=== PATIENT | female | born 1985 | race Asian ===

== ENCOUNTER 2016-09-24 10:11 | Inpatient (IN) | payer OTHER ==
[~2016-09-24] VITALS: Ht 170.2 cm; Wt 84.0 kg
[~2016-09-24 10:11] MED LIST: ATROPINE SYRINGE 0.1 MG/ML, 10ML ONE; CEFAZOLIN 1,000 MG ONE; ONDANSETRON 2MG/ML, 2ML ONE
[2016-09-24] MEDS ORDERED: METF500T4 PO (10:26)
[2016-09-24] MEDS: OXYTOCIN 30U/ 0.9% NaCL 500ML 500 ML IV SCH ×3 (10:26→20:26)
[2016-09-24] MEDS ORDERED: vegan iron PO (10:26)
[2016-09-24] MEDS ORDERED: PREN1TAB60 PO (10:26)
[2016-09-24] MEDS ORDERED: LACTATED RINGERS 1,000 ML IVBOLUS ONE (10:30)
[2016-09-24] MEDS ORDERED: SODIUM CITRATE/CITRIC ACID 30 ML UDC PO ONE (10:30)
[2016-09-24] MEDS ORDERED: METOCLOPRAMIDE 5 MG/ML, 2ML IV ONE (10:30)
[2016-09-24] MEDS: PLEASE ENTER HEIGHT AND WEIGHT MC SCH ×2 (10:40→18:40)
[2016-09-24 10:43] VITALS: BP 113/73
[2016-09-24] MEDS: LACTATED RINGERS 1,000 ML IV SCH ×6 (10:43→18:30)
[2016-09-24] MEDS ORDERED: NEWBORN KIT ONE (11:24)
[2016-09-24] MEDS ORDERED: OXYTOCIN 30U/ 0.9% NaCL 500ML 500 ML ONE (11:24)
[2016-09-24] MEDS ORDERED: METOCLOPRAMIDE 5 MG/ML, 2ML ONE (11:25)
[2016-09-24] MEDS ORDERED: SODIUM CITRATE/CITRIC ACID 30 ML UDC ONE (11:25)
[2016-09-24] MEDS ORDERED: FENTANYL PF 100 MCG/2ML ONE (16:27)
[2016-09-24] MEDS ORDERED: HYDROmorphone 2 MG/ML, 1ML ONE (16:28)
[2016-09-24] MEDS ORDERED: ACETAMINOPHEN 325 MG TABLET PO PRN ×2 (17:00)
[2016-09-24] MEDS ORDERED: METOCLOPRAMIDE 5 MG/ML, 2ML IV PRN (17:00)
[2016-09-24] MEDS ORDERED: METHYLERGONOVINE 0.2 MG/ML IM PRN (17:00)
[2016-09-24] MEDS ORDERED: GLYCERIN ADULT SUPP PR PRN (17:00)
[2016-09-24] MEDS ORDERED: MISOPROSTOL 200 MCG TABLET PR PRN (17:00)
[2016-09-24] MEDS ORDERED: MEPERIDINE/PF 50 MG/ML IM PRN (17:00)
[2016-09-24] MEDS: KETOROLAC 30 MG/1 ML IV SCH ×2 (17:00→23:00)
[2016-09-24] MEDS ORDERED: ONDANSETRON 2MG/ML, 2ML IV PRN (17:00)
[2016-09-24] MEDS ORDERED: OXYcodone/APAP 5/325MG TABLET PO PRN (17:00)
[2016-09-24] MEDS ORDERED: CARBOPROST TROMETHAMINE 250 MCG/ML, 1ML IM PRN (17:00)
[2016-09-24] MEDS ORDERED: ATROPINE 0.4 MG/ML, 1ML IVPush ONE (18:30)
[2016-09-24 19:12] VITALS: BP 108/64
[2016-09-24 20:00] VITALS: BP 108/64
[2016-09-24 20:32] VITALS: BP 112/67
[2016-09-24 20:41] LABS: BLOOD UREA NITROGEN 5 mg/dL (7-18)
[2016-09-24 20:47] LABS: IS PT STATUS REG ER OR PRE ER? NO
[2016-09-24 21:02] VITALS: BP 111/56
[2016-09-24 21:30] VITALS: BP_SYST 111; BP_SYST 113; BP_DIAS 71; BP_DIAS 75
[2016-09-25] MEDS: LACTATED RINGERS 1,000 ML IV SCH ×6 (00:46→22:46)
[2016-09-25 02:32] VITALS: BP 104/67
[2016-09-25] MEDS: OXYTOCIN 30U/ 0.9% NaCL 500ML 500 ML IV SCH ×3 (02:46→22:46)
[2016-09-25] MEDS: KETOROLAC 30 MG/1 ML IV SCH ×4 (03:28→21:35)
[2016-09-25] MEDS: OXYcodone IR 5MG TABLET PO PRN ×4 (03:29→20:22)
[2016-09-25 08:02] VITALS: BP 110/74
[2016-09-25] MEDS: PRENATAL VIT/IRON/FA 1 EACH TABLET PO SCH (08:53)
[2016-09-25 10:30] VITALS: BP 102/62
[2016-09-25 14:15] VITALS: BP 158/90
[2016-09-25 16:45] VITALS: BP 105/60
[2016-09-25 20:10] VITALS: BP 114/75
[2016-09-25] MEDS: DOCUSATE 100 MG CAPSULE PO PRN (20:22)
[2016-09-26] MEDS: OXYcodone IR 5MG TABLET PO PRN ×5 (00:34→21:26)
[2016-09-26] MEDS: LACTATED RINGERS 1,000 ML IV SCH (01:13)
[2016-09-26] MEDS: OXYTOCIN 30U/ 0.9% NaCL 500ML 500 ML IV SCH (01:14)
[2016-09-26] MEDS: KETOROLAC 30 MG/1 ML IV SCH ×3 (04:19→15:41)
[2016-09-26 07:30] VITALS: BP 105/57
[2016-09-26] MEDS: PRENATAL VIT/IRON/FA 1 EACH TABLET PO SCH (09:00)
[2016-09-26] MEDS: DOCUSATE 100 MG CAPSULE PO PRN ×2 (09:42→21:26)
[2016-09-26] MEDS ORDERED: KETOROLAC 30 MG/1 ML ONE (15:36)
[2016-09-26 20:30] VITALS: BP 118/80
[2016-09-26] MEDS: IBUPROFEN 600 MG TABLET PO PRN (21:26)
[2016-09-27] MEDS: IBUPROFEN 600 MG TABLET PO PRN (03:33)
[2016-09-27] MEDS: OXYcodone IR 5MG TABLET PO PRN (03:33)
[2016-09-27] MEDS: LACTATED RINGERS 1,000 ML IV SCH (04:46)
[2016-09-27] MEDS: OXYTOCIN 30U/ 0.9% NaCL 500ML 500 ML IV SCH (04:46)
[2016-09-27] MEDS ORDERED: OXYC-302 PO (05:59)
[2016-09-27] MEDS ORDERED: IBUP-1222 PO (06:00)
[2016-09-27] MEDS ORDERED: DOCU-30 PO (06:02)
[2016-09-27] MEDS: DOCUSATE 100 MG CAPSULE PO PRN (07:54)
[2016-09-27] MEDS: PRENATAL VIT/IRON/FA 1 EACH TABLET PO SCH (07:55)
[2016-09-27 08:14] VITALS: BP 105/68
== END 2016-09-27 11:11 | disposition home or self-care (01) | DRG 766 ==
LOC: LDIP 10:11 → 5SO 18:54 → 2NW 09-25 10:30
PROVIDERS: ADMIT Obstetrics & Gynecology; ATTEND Obstetrics & Gynecology
PROC: 10D00Z1 Extraction of Products of Conception, Low, Open Approach (ICD-10-PCS; principal; 2016-09-24)
DX: O34.211 Maternal care for low transverse scar from previous cesarean delivery (principal); E28.2 Polycystic ovarian syndrome; Z79.84 Long term (current) use of oral hypoglycemic drugs; D64.9 Anemia, unspecified; Z37.0 Single live birth; Z3A.39 39 weeks gestation of pregnancy; O69.81X0 Labor and delivery complicated by cord around neck, without compression, not applicable or unspecified; O90.81 Anemia of the puerperium
CPT/HCPCS: 36415; 80048; 84436; 84481; 84484; 85025; 86850; 86900; 93005; 93306; J0461; J0690; J1170; J1885; J2405; J3010; J2765; J7120